=== PATIENT | female | born 1995 | race African-American/Black ===

== ENCOUNTER 2022-01-19 12:25 | Emergency (ER) | payer MEDICAID, OTHER ==
[~2022-01-19] VITALS: Ht 162.6 cm; Wt 65.0 kg
[2022-01-19 12:28] VITALS: BP 107/67
[2022-01-19] MEDS ORDERED: ASPirin 81 mg TAB PO ONE (12:45)
[2022-01-19 13:05] LABS: Eosinophils # (auto) 0.1 10 ^3/uL (0-0.8); Eosinophils % (auto) 1.6 % (0.0-7.0); Hemoglobin 7.8 g/dL (12.2-16.2); Mean Corpuscular Hgb Conc. 29.5 g/dL (32.0-36.0); Monocytes # (auto) 0.8 10 ^3/uL (0-1.3); Neutrophils # (auto) 5.4 10 ^3/uL (1.6-8.6); Nucleated Red Blood Cells % 0.1 %; White Blood Cell 6.8 10^3/uL (4.4-10.8)
[2022-01-19 13:08] LABS: Basophils # (auto) 0 10 ^3/uL (0-0.2); Basophils % (auto) 0.6 % (0.0-2.0); Hematocrit 26.5 % (36.0-46.0); Lymphocytes # (auto) 0.4 10 ^3/uL (0.4-5.4); Lymphocytes % (auto) 6.4 % (10.0-50.0); Mean Corpuscular Hemoglobin 20.7 pg (28.0-32.0); Monocytes % (auto) 11.7 % (0.0-12.0); Neutrophils % (auto) 79.7 % (37.0-80.0); Red Blood Cells 3.78 10^6/uL (4.0-5.20); Red Cell Distribution Width 17.8 % (11.8-14.3)
[2022-01-19 13:31] LABS: Albumin 3.8 g/dL (3.4-5.0); BUN/Creatinine Ratio 15.8; Calcium 8.4 mg/dL (8.5-10.1); Magnesium 1.9 mg/dL (1.6-2.6); Potassium 3.8 mmol/L (3.5-5.1); Total Protein 7.7 g/dL (6.4-8.2)
[2022-01-19 13:37] LABS: Bilirubin, Total 0.3 mg/dL (0.2-1.0)
[2022-01-19 13:56] LABS: Urine Bacteria NONE SEEN /hpf (None Seen); Urine Blood Negative /uL (Negative); Urine Specific Gravity 1.022 (1.001-1.035); Urine WBC 1 /hpf (0 - 5)
== END 2022-01-19 20:50 | disposition left against medical advice (07) ==
LOC: ER 12:27
DX: R07.89 Other chest pain (principal); Z53.21 Procedure and treatment not carried out due to patient leaving prior to being seen by health care provider
CPT/HCPCS: 36415; 71045; 80053; 81001; 83735; 84484; 85025; 93005

== ENCOUNTER 2024-05-25 12:22 | Emergency (ER) | payer OTHER, MEDICAID | END 2024-05-25 13:03 | disposition left against medical advice (07) | LOC: ER 12:30 | DX: R10.2 Pelvic and perineal pain (principal); Z53.21 Procedure and treatment not carried out due to patient leaving prior to being seen by health care provider ==